=== PATIENT | female | born 1935 | race Caucasian/White ===

== ENCOUNTER 2019-04-10 12:49 | Emergency (ER) | payer OTHER ==
--- NOTE | 2019-04-10 14:59 | RAD REPORT ---
EXAM DESCRIPTION: CT - Thorax Wo Con - 04/10/2019 2:35 pm CLINICAL HISTORY: Chest pain status post fall COMPARISON: October 2017 TECHNIQUE: Computed axial tomography of the chest was obtained. Contrast was not requested. All CT scans are performed using dose optimization technique as appropriate and may include automated exposure control or mA/KV adjustment according to patient size. FINDINGS: The evaluation of mediastinum, tosha and vessels is limited secondary to lack of IV contras t administration. A pulmonary contusion is not noted. A mediastinal hematoma is not seen. A pleural effusion is not present. 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
--- NOTE | 2019-04-10 15:00 | RAD REPORT ---
EXAM DESCRIPTION: CTSpine Lumbar Wo Con04/10/2019 2:41 pm CLINICAL HISTORY: Back injury with back pain and radiculopathy status post fall COMPARISON: October 2017 TECHNIQUE: Computed axial tomography lumbar spine was obtained with coronal and sagittal reconstruct ion. All CT scans are performed using dose optimization technique as appropriate and may include automated exposure control or mA/KV adjustment according to patient size. FINDINGS: Mild anterior subluxation L4 on L5 is unchanged No fracture is seen. A filter is present within the inferior vena cava which extends to the level of the right renal vein. 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 If patient continues to have symptoms to suggest acute spin al canal pathology MRI would be recommended
--- NOTE | 2019-04-10 15:07 | EDPHYS ---
Physician Documentation [facility] Name: Mireya Tsai Age: 83 yrs Sex: Female : 1935 Arrival Date: 04/10/2019 Time: 12:51 Bed 4 Private MD: ED Physician Ben Pitt HPI: 04/10 13:27 This 83 yrs old Female presents to ER via EMS with complaints of Fall Injury. rn 13:27 Details of fall: The patient fell from an upright position. Onset: The symptoms/episode rn began/occurred today. Associated injuries: The patient sustained upper back injury. Severity of symptoms: At their worst the symptoms were mild, in the emergency department the symptoms are unchanged. The patient has not experienced similar symptoms in the past. Reports getting dressed after shower, lost balance putting shirt on, fell backwards, struck posterior thorax/back on end table, is ambulatory, did not hit head, no LOC, remembers all events. No chest/abd pain/head pain/neck pain/extremity pain.. 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 - Social history:: Smoking status: Patient/guardian denies using tobacco. - Ebola Screening: : No symptoms or risks identified at this time. - Family history:: not pertinent. - Hospitalizations: : No recent hospitalization is reported. ROS: 13:27 Constitutional: Negative for fever, chills, and weight loss, Eyes: Negative for injury, rn pain, redness, and discharge, Neck: Negative for injury, pain, and swelling, Cardiovascular: Negative for chest pain, palpitations, and edema, Respiratory: Negative for shortness of breath, cough, wheezing, and pleuritic chest pain, Abdomen/GI: Negative for abdominal pain, nausea, vomiting, diarrhea, and constipation, Back: + back pain MS/Extremity: Negative for injury and deformity, Skin: Negative for laceration Neuro: Negative for headache, weakness, numbness, tingling, and seizure. Exam: 13:27 Constitutional: This is a well developed, well nourished patient who is awake, alert, rn and in no acute distress. Head/Face: Normocephalic, atraumatic. Eyes: Pupils equal round and reactive to light, extra-ocular motions intact. Lids and lashes normal. Conjunctiva and sclera are non-icteric and not injected. Cornea within normal limits. Periorbital areas with no swelling, redness, or edema. Neck: Trachea midline, no thyromegaly or masses palpated, and no cervical lymphadenopathy. Supple, full range of motion without nuchal rigidity, or vertebral point tenderness. No Meningismus. Chest/axilla: Normal chest wall appearance and motion. Nontender with no deformity. No lesions are appreciated. Cardiovascular: Regular rate and rhythm. No pulse deficits. Respiratory: Lungs have equal breath sounds bilaterally, clear to auscultation. No increased work of breathing, no retractions or nasal flaring. Abdomen/GI: soft, non-tender Skin: Warm, dry, + abrasion left elbow, small contusion mid back MS/ Extremity: Pulses equal, no cyanosis. Neurovascular intact. Full, normal range of motion. Equal circumference. Neuro: Awake and alert, GCS 15, oriented to person, place, time, and situation. Cranial nerves II-XII grossly intact. Motor strength 5/5 in all extremities. Sensory at baseline Vital Signs: 12:58 BP 175 / 91; Pulse 84; Resp 18; Temp 97.9; Pulse Ox 97% ; Weight 61.69 kg; Height 5 ft. sv 5 in. (165.10 cm); Pain 0/10; 13:36 BP 152 / 67; Pulse 74; Resp 18; Temp 98; Pulse Ox 98% ; sv 14:52 BP 172 / 79; Pulse 72; Resp 16; Pulse Ox 96% ; sv 15:54 BP 149 / 99; Pulse 77; Resp 16; Temp 98; Pulse Ox 99% ; sv 12:58 Body Mass Index 22.63 (61.69 kg, 165.10 cm) sv [place] Coma Score: 12:58 Eye Response: spontaneous(4). Verbal Response: oriented(5). Motor Response: obeys sv commands(6). Total: 15. 13:36 Eye Response: spontaneous(4). Verbal Response: oriented(5). Motor Response: obeys sv commands(6). Total: 15. 14:52 Eye Response: spontaneous(4). Verbal Response: oriented(5). Motor Response: obeys sv commands(6). Total: 15. 15:54 Eye Response: spontaneous(4). Verbal Response: oriented(5). Motor Response: obeys sv commands(6). Total: 15. Trauma Score (Adult): 12:58 Eye Response: spontaneous(1); Verbal Response: oriented(1); Motor Response: obeys sv commands(2); Systolic BP: > 89 mm Hg(4); Respiratory Rate: 10 to 29 per min(4); Elder Score: 15; Trauma Score: 12 13:36 Eye Response: spontaneous(1); Verbal Response: oriented(1); Motor Response: obeys sv commands(2); Systolic BP: > 89 mm Hg(4); Respiratory Rate: 10 to 29 per min(4); [place] Score: 15; Trauma Score: 12 14:52 Eye Response: spontaneous(1); Verbal Response: oriented(1); Motor Response: obeys sv commands(2); Systolic BP: > 89 mm Hg(4); Respiratory Rate: 10 to 29 per min(4); [place] Score: 15; Trauma Score: 12 15:54 Eye Response: spontaneous(1); Verbal Response: oriented(1); Motor Response: obeys sv commands(2); Systolic BP: > 89 mm Hg(4); Respiratory Rate: 10 to 29 per min(4); [place] Score: 15; Trauma Score: 12 MDM: 12:54 Patient medically screened. rn 15:06 Differential diagnosis: contusion, fracture, sprain. Data reviewed: vital signs, nurses rn notes, radiologic studies, CT scan, and as a result, I will discharge patient. Counseling: I had a detailed discussion with the patient and/or guardian regarding: the historical points, exam findings, and any diagnostic results supporting the discharge/admit diagnosis, radiology results, the need for outpatient follow up, to return to the emergency department if symptoms worsen or persist or if there are any questions or concerns that arise at home. Special discussion: I discussed with the patient/guardian in detail that at this point there is no indication for admission to the hospital. It is understood, however, that if the symptoms persist or worsen the patient needs to return immediately for re-evaluation. 04/10 12:56 Order name: CT Chest Wo Con; Complete Time: 15:05 rn 04/10 12:56 Order name: CT Lumbar Spine Wo Con; Complete Time: 15:05 rn Administered Medications: No medications were administered Disposition: 04/10/19 15:06 Discharged to Home. Impression: Contusion of back wall of thorax. - Condition is Stable. - Discharge Instructions: Contusion. - Medication Reconciliation Form, Thank You Letter, Antibiotic Education, Prescription Opioid Use form. - Follow up: Private Physician; When: As needed; Reason: Recheck today's complaints, Re-evaluation by your physician. - Problem is new. - Symptoms have improved. Signatures: Dispatcher [employer] Mildred Smith RN RN Ben Delaney MD MD plasterer journeyman: (The following items were deleted from the chart) 15:56 15:06 04/10/2019 15:06 Discharged to Home. Impression: Contusion of back wall of sv thorax. Condition is Stable. Forms are Medication Reconciliation Form, Thank You Letter, Antibiotic Education, Prescription Opioid Use. Follow up: Private Physician; When: As needed; Reason: Recheck today's complaints, Re-evaluation by your physician. Problem is new. Symptoms have improved. rn
--- NOTE | 2019-04-10 15:07 | ER ---
Nurse's Notes [facility] Name: Mireya Tsai Age: 83 yrs Sex: Female : 1935 Arrival Date: 04/10/2019 Time: 12:51 Bed 4 Private MD: Diagnosis: Contusion of back wall of thorax Presentation: 04/10 12:46 Presenting complaint: EMS states: was standing putting on her shirt, lost her balance sv and hit her mid back area on her nightstand. Left elbow skin tear, was amb on scene. BP 165/85 HR-81 96% RA. Care prior to arrival: None. Mechanism of Injury: Fall from standing position. Trauma event details: Injury occurred in the [facility], Injury occurred: at home. Injury occurred: April 10, 2019. 12:46 Acuity: MICHEAL 4 sv 12:46 Method Of Arrival: EMS: [facility] sv 12:55 Transition of care: [facility]. Onset of symptoms was April 10, 2019. Risk Assessment: sv Do you want to hurt yourself or someone else? Patient reports no desire to harm self or others. Initial Sepsis Screen: Does the patient meet any 2 criteria? No. Patient's initial sepsis screen is negative. Does the patient have a suspected source of infection? No. Patient's initial sepsis screen is negative. 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 - Social history:: Smoking status: Patient/guardian denies using tobacco. - Ebola Screening: : No symptoms or risks identified at this time. - Family history:: not pertinent. - Hospitalizations: : No recent hospitalization is reported. Screenin:00 Abuse screen: Denies threats or abuse. Denies injuries from another. Tuberculosis sv screening: No symptoms or risk factors identified. 13:01 Nutritional screening: No deficits noted. Fall Risk No fall in past 12 months (0 pts). sv No secondary diagnosis (0 pts). No IV (0 pts). Ambulatory Aid- None/Bed Rest/Nurse Assist (0 pts). Gait- Normal/Bed Rest/Wheelchair (0 pts) Mental Status- Oriented to own ability (0 pts). Total Guillory Fall Scale indicates No Risk (0-24 pts). Primary Survey: 12:46 NO uncontrolled hemorrhage observed. A: The patient is alert. Airway: patent, No sv supplemental oxygen in use on arrival. Oral cavity: clear. Breathing/Chest: Respiratory pattern: regular, Respiratory effort: spontaneous, unlabored, Chest inspection: symmetrical rise and fall of the chest. Circulation: Pulses: palpable right radial artery and left radial artery. Skin color: pink, Skin temperature: warm, dry. Disability Alert. Exposure/Environment: All clothing and personal items were removed. Forensic evidence collection is not deemed to be indicated at this time. Items placed in patient belonging bag. There is no evidence of uncontrolled external bleeding. Obvious injury(ies) are noted at this time: skin tear to left elbow A warming method has been applied: A warm blanket has been provided to the patient. 13:37 Reassessment Airway Airway Patent Oxygen No O2 Oral cavity Clear Trachea Midline sv Breathing/Chest Respiratory pattern Regular Respiratory effort Spontaneous Unlabored Chest inspection Symmetrical Circulation Pulses Palpable Color [place] Temperature Warm Dry Disability Alert. Secondary Survey: 12:46 HEENT: No deficits noted. Gastrointestinal: No deficits noted. : No deficits noted. sv No signs and/or symptoms were reported regarding the genitourinary system. Musculoskeletal: No signs and/or symptoms reported regarding the musculoskeletal system. Assessment: 14:47 Reassessment: Patient appears in no apparent distress at this time. No changes from sv previously documented assessment. Patient and/or family updated on plan of care and expected duration. Pain level reassessed. Patient is alert, oriented x 3, equal unlabored respirations, skin warm/dry/pink. 14:53 Reassessment: Patient appears in no apparent distress at this time. No changes from sv previously documented assessment. Patient and/or family updated on plan of care and expected duration. Pain level reassessed. Patient is alert, oriented x 3, equal unlabored respirations, skin warm/dry/pink. 15:55 Reassessment: Patient appears in no apparent distress at this time. No changes from sv previously documented assessment. Patient and/or family updated on plan of care and expected duration. Pain level reassessed. Patient is alert, oriented x 3, equal unlabored respirations, skin warm/dry/pink. Vital Signs: 12:58 BP 175 / 91; Pulse 84; Resp 18; Temp 97.9; Pulse Ox 97% ; Weight 61.69 kg; Height 5 ft. sv 5 in. (165.10 cm); Pain 0/10; 13:36 BP 152 / 67; Pulse 74; Resp 18; Temp 98; Pulse Ox 98% ; sv 14:52 BP 172 / 79; Pulse 72; Resp 16; Pulse Ox 96% ; sv 15:54 BP 149 / 99; Pulse 77; Resp 16; Temp 98; Pulse Ox 99% ; sv 12:58 Body Mass Index 22.63 (61.69 kg, 165.10 cm) sv [place] Coma Score: 12:58 Eye Response: spontaneous(4). Verbal Response: oriented(5). Motor Response: obeys sv commands(6). Total: 15. 13:36 Eye Response: spontaneous(4). Verbal Response: oriented(5). Motor Response: obeys sv commands(6). Total: 15. 14:52 Eye Response: spontaneous(4). Verbal Response: oriented(5). Motor Response: obeys sv commands(6). Total: 15. 15:54 Eye Response: spontaneous(4). Verbal Response: oriented(5). Motor Response: obeys sv commands(6). Total: 15. Trauma Score (Adult): 12:58 Eye Response: spontaneous(1); Verbal Response: oriented(1); Motor Response: obeys sv commands(2); Systolic BP: > 89 mm Hg(4); Respiratory Rate: 10 to 29 per min(4); [place] Score: 15; Trauma Score: 12 13:36 Eye Response: spontaneous(1); Verbal Response: oriented(1); Motor Response: obeys sv commands(2); Systolic BP: > 89 mm Hg(4); Respiratory Rate: 10 to 29 per min(4); [place] Score: 15; Trauma Score: 12 14:52 Eye Response: spontaneous(1); Verbal Response: oriented(1); Motor Response: obeys sv commands(2); Systolic BP: > 89 mm Hg(4); Respiratory Rate: 10 to 29 per min(4); Elder Score: 15; Trauma Score: 12 15:54 Eye Response: spontaneous(1); Verbal Response: oriented(1); Motor Response: obeys sv commands(2); Systolic BP: > 89 mm Hg(4); Respiratory Rate: 10 to 29 per min(4); [place] Score: 15; Trauma Score: 12 ED Course: 12:51 Patient arrived in ED. ss 12:52 Mildred Calabrese, NORMA is Primary Nurse. sv 12:54 Ben Pitt MD is Attending Physician. rn 12:54 Triage completed. sv 13:00 Patient has correct armband on for positive identification. Placed in gown. Bed in low sv position. Call light in reach. Side rails up X2. 13:01 Arm band placed on. sv 13:[address] Scan. sv 13:02 Patient maintains SpO2 saturation greater than 95% on room air. sv 13:02 Thermoregulation: warm blanket given to patient. sv 13:[address] via stretcher. sv 13:29 CT completed. Patient tolerated procedure well. Patient moved back from CT. mw3 13:29 CT Chest Wo Con In Process Unspecified. EDMS 13:29 CT Lumbar Spine Wo Con In Process Unspecified. EDMS 13:35 Awaiting radiology results. sv 14:46 Patient moved back from CT. sv 14:47 Awaiting radiology results. sv 15:55 No provider procedures requiring assistance completed. Patient did not have IV access sv during this emergency room visit. Administered Medications: No medications were administered Intake: 12:58 PO: 0ml; Total: 0ml. sv 13:36 PO: 0ml; Total: 0ml. sv 15:54 PO: 0ml; Total: 0ml. sv Output: 12:58 Urine: 0ml; Total: 0ml. sv 13:36 Urine: 0ml; Total: 0ml. sv 15:54 Urine: 0ml; Total: 0ml. sv Outcome: 15:06 Discharge ordered by . rn 15:55 Discharged to home via wheelchair, with family. sv 15:55 Condition: stable 15:55 Discharge instructions given to patient, family, Instructed on discharge instructions, follow up and referral plans. Demonstrated understanding of instructions, follow-up care. 15:56 Patient's length of stay in the Emergency Department was greater than 2 hours. due to sv CTPatient's length of stay extended due to 15:56 Patient left the ED. sv Signatures: Dispatcher [employer] Mildred Smith RN RN sv Nieto, Roman, MD MD rn Smirch, Shelby, RN RN ss Willis, Michelle mw3 Corrections: (The following items were deleted from the chart) 14:53 13:36 BP 152 / 67; Pulse 74bpm; Resp 18bpm; Pulse Ox 98%; sv sv
[2019-04-10 16:27] VITALS: TEMP 98
[2019-04-10 16:29] VITALS: BP 149/99; O2SAT 99
== END 2019-04-10 15:56 | disposition home or self-care (01) ==
LOC: ER 12:49
DX: S20.229A Contusion of unspecified back wall of thorax, initial encounter (principal); I82.409 Acute embolism and thrombosis of unspecified deep veins of unspecified lower extremity; W18.30XA Fall on same level, unspecified, initial encounter; Y93.89 Activity, other specified; Y92.89 Other specified places as the place of occurrence of the external cause; Z91.040 Latex allergy status
CPT/HCPCS: 71250; 72131; 99284

== ENCOUNTER 2020-04-30 15:03 | Observation (INO) | payer OTHER ==
[2020-04-30] MEDS ORDERED: ASPIRIN 81 MG CHEWABLE TABLET ONE (16:35)
[2020-04-30] MEDS ORDERED: NA CHLORIDE 0.9% 1,000 ML ONE (16:35)
[2020-04-30 16:36] LABS: Absolute Lymphocytes (CBC) 1.5 K/uL (0.7-4.9); Basophils % 0.8 % (0-1.3); Hematocrit 27.9 % (36.0-45.0); Lymphocytes % 33.7 % (15.3-44.8); MPV 7.7 fL (7.6-11.3); RBC Red Blood Cell Count 4.02 M/uL (3.86-4.86)
[2020-04-30 16:37] LABS: Protime INR 1.09
[2020-04-30 16:50] LABS: ALT/SGPT 14 U/L (12-78); AST/SGOT 14 U/L (15-37); Albumin 3.2 g/dL (3.4-5.0); Alkaline Phosphatase 49 U/L (45-117); BUN Blood Urea Nitrogen 16 mg/dL (7-18); Bicarbonate 25 mmol/L (21-32); Bilirubin Direct < 0.1 mg/dL (0-0.2); Bilirubin Total 0.2 mg/dL (0.2-1.0); Glucose Level 95 mg/dL (74-106); Lipase 166 U/L (73-393); Magnesium 2.5 mg/dL (1.8-2.4); NT PRO-BNP 194 pg/mL (<450); Potassium 4.2 mmol/L (3.5-5.1); Protein, Total 7.3 g/dL (6.4-8.2); Sodium Level 143 mmol/L (136-145); Troponin (Emerg Dept Use Only) < 0.02 ng/mL (0.0-0.045)
[2020-04-30 17:29] LABS: Anisocytosis 2+; Blood Morphology Comment NOTED (NOT SEEN); Platelet Estimate ADEQ; Poikilocytosis 2+; Urine White Blood Cell Casts OK
--- NOTE | 2020-04-30 17:29 | RAD REPORT ---
EXAM DESCRIPTION: Hannah Single View04/30/2020 4:06 pm CLINICAL HISTORY: Chest pain COMPARISON: 2016 FINDINGS: The lungs appear clear of acute infiltrate. The heart is normal size IMPRESSION: No acute abnormalities displayed
--- NOTE | 2020-04-30 17:44 | EDPHYS ---
Physician Documentation [facility] Name: Mireya Tsai Age: 84 yrs Sex: Female : 1935 Arrival Date: 04/30/2020 Time: 15:00 Bed 16 Private MD: ED Physician Juno Goel HPI: 04/30 17:26 This 84 yrs old Female presents to ER via EMS with complaints of Chest Pain. rick 17:26 The patient or guardian reports chest pain that is located primarily in the substernal rick area. Onset: 4 day(s) ago. The pain does not radiate. Associated signs and symptoms: The patient has no apparent associated signs or symptoms. The chest pain is described as a heaviness, a pressure. Modifying factors: The symptoms are alleviated by nothing. the symptoms are aggravated by nothing. Severity of pain: in the emergency department the pain has improved. The patient has experienced similar episodes in the past, a few times. 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 - Social history:: Smoking status: Patient denies any tobacco usage or history of. - Family history:: not pertinent. ROS: 17:26 Constitutional: Negative for fever, chills, and weight loss, Eyes: Negative for injury, rick pain, redness, and discharge, ENT: Negative for injury, pain, and discharge, Neck: Negative for injury, pain, and swelling, Respiratory: Negative for shortness of breath, cough, wheezing, and pleuritic chest pain, Abdomen/GI: Negative for abdominal pain, nausea, vomiting, diarrhea, and constipation, Back: Negative for injury and pain, : Negative for injury, bleeding, discharge, and swelling, MS/Extremity: Negative for injury and deformity, Skin: Negative for injury, rash, and discoloration, Neuro: Negative for headache, weakness, numbness, tingling, and seizure, Psych: Negative for depression, anxiety, suicide ideation, homicidal ideation, and hallucinations, Allergy/Immunology: Negative for hives, rash, and allergies, Endocrine: Negative for neck swelling, polydipsia, polyuria, polyphagia, and marked weight changes, Hematologic/Lymphatic: Negative for swollen nodes, abnormal bleeding, and unusual bruising. 17:26 Cardiovascular: Positive for chest pain, of the chest. 17:26 MS/extremity: Negative for acute changes, swelling, tenderness. Exam: 17:28 Constitutional: This is a well developed, well nourished patient who is awake, alert, rick and in no acute distress. Head/Face: Normocephalic, atraumatic. Eyes: Pupils equal round and reactive to light, extra-ocular motions intact. Lids and lashes normal. Conjunctiva and sclera are non-icteric and not injected. Cornea within normal limits. Periorbital areas with no swelling, redness, or edema. ENT: Nares patent. No nasal discharge, no septal abnormalities noted. Tympanic membranes are normal and external auditory canals are clear. Oropharynx with no redness, swelling, or masses, exudates, or evidence of obstruction, uvula midline. Mucous membranes moist. Neck: Trachea midline, no thyromegaly or masses palpated, and no cervical lymphadenopathy. Supple, full range of motion without nuchal rigidity, or vertebral point tenderness. No Meningismus. Chest/axilla: Normal chest wall appearance and motion. Nontender with no deformity. No lesions are appreciated. Cardiovascular: Regular rate and rhythm with a normal S1 and S2. No gallops, murmurs, or rubs. Normal PMI, no JVD. No pulse deficits. Respiratory: Lungs have equal breath sounds bilaterally, clear to auscultation and percussion. No rales, rhonchi or wheezes noted. No increased work of breathing, no retractions or nasal flaring. Abdomen/GI: Soft, non-tender, with normal bowel sounds. No distension or tympany. No guarding or rebound. No evidence of tenderness throughout. Back: No spinal tenderness. No costovertebral tenderness. Full range of motion. Female : Normal external genitalia. MS/ Extremity: Pulses equal, no cyanosis. Neurovascular intact. Full, normal range of motion. Neuro: Awake and alert, GCS 15, oriented to person, place, time, and situation. Cranial nerves II-XII grossly intact. Motor strength 5/5 in all extremities. Sensory grossly intact. Cerebellar exam normal. Normal gait. Psych: Awake, alert, with orientation to person, place and time. Behavior, mood, and affect are within normal limits. 17:28 Musculoskeletal/extremity: DVT Exam: No signs of deep vein thrombosis. no pain, no swelling, no tenderness, negative Homans' sign noted on exam, no appreciated bluish discoloration, no erythema, no increased warmth. 17:28 Skin: Appearance: Color: pale, Temperature: normal temperature, Moisture: normal moisture, petechiae, not noted, ecchymosis, not noted, flushing, not noted, abscess, not appreciated, cellulitis, is not appreciated, induration, is not appreciated, injury, is not appreciated. 17:32 ECG was reviewed by the Attending Physician. rick 17:58 Abdomen/GI: Rectal exam: is unremarkable, rectal tone normal, Stool: guaiac negative, rick hemorrhoid(s), are not appreciated, mass, is not appreciated, swelling, is not appreciated, tenderness, is not appreciated, fecal impaction, is not appreciated. Vital Signs: 16:00 BP 142 / 59; Pulse 75; Resp 16 S; Temp 99.3(O); Pulse Ox 97% on R/A; Pain 0/10; aa5 17:00 BP 145 / 59; Pulse 73; Resp 16 S; Pulse Ox 98% on R/A; aa5 18:00 BP 160 / 70; Pulse 77; Resp 16 S; Pulse Ox 97% on R/A; aa5 19:00 BP 158 / 79; Pulse 76; Resp 19; Pulse Ox 97% on R/A; rv 20:00 BP 157 / 65; Pulse 73; Resp 17; Pulse Ox 97% on R/A; rv MDM: 15:32 Patient medically screened. [facility] 17:28 Data reviewed: vital signs, nurses notes, lab test result(s), EKG, radiologic studies, [facility] plain films. 17:29 Differential diagnosis: abnormal EKG, anxiety, chest wall pain, cholecystitis, rick Cholelithiasis gastroesophageal reflux disease (GERD), hiatal hernia, pancreatitis, pneumonia, pulmonary embolus, stable angina, unstable angina. HEART Score: History: Moderately Suspicious (1), ECG: Non specific repolarization disturbance / LBTB / PM (1), Age: > or = 65 years (2), Risk Factors: > or = 3 Risk factors for atherosclerotic disease (2), [Hypercholesterolemia] [Hypertension] [+ Family HX]. The patient was given aspirin in the Emergency Department. The patient's deep vein thrombosis risk score was calculated as follows: Total Score: 0. This patient was found to be at low risk for a deep vein thrombosis by using the Well's assessment criteria. The patient's pulmonary embolism risk score was calculated as follows: Total Score: 0-2 points. This patient was found to be at low risk for a pulmonary embolism by using the Well's assessment criteria. JUDITH Risk Score: 1 - patient's age is greater or equal to 65 years, 1 - Three or more CAD risk factors, 1- Known CAD. 04/30 15:31 Order name: Basic Metabolic Panel; Complete Time: 17:31 [facility] 04/30 15:31 Order name: CBC with Diff; Complete Time: 17:31 [facility] 04/30 15:31 Order name: LFT's; Complete Time: 17:31 [facility] 04/30 15:31 Order name: Magnesium; Complete Time: 17:31 [facility] 04/30 15:31 Order name: NT PRO-BNP; Complete Time: 17:31 [facility] 04/30 15:31 Order name: PT-INR; Complete Time: 17:31 [facility] 04/30 15:31 Order name: Troponin (emerg Dept Use Only); Complete Time: 17:31 [facility] 04/30 15:31 Order name: Lipase; Complete Time: 17:31 [facility] 04/30 16:46 Order name: CBC Smear Scan; Complete Time: 17:31 EDMS 04/30 17:56 Order name: Type And Screen 04/30 17:56 Order name: Retic Count 04/30 17:56 Order name: B12 rick 04/30 17:56 Order name: Folic Acid,Serum (folate) 04/30 17:56 Order name: Ferritin 04/30 15:31 Order name: XRAY Chest (1 view); Complete Time: 17:31 [facility] 04/30 15:31 Order name: EKG; Complete Time: 15:32 rick 04/30 15:31 Order name: Cardiac monitoring; Complete Time: 16:36 [facility] 04/30 15:31 Order name: EKG - Nurse/Tech; Complete Time: 16:36 rick 04/30 15:31 Order name: IV Saline Lock; Complete Time: 16:36 [facility] 04/30 17:47 Order name: CONS Physician Consult [facility] 04/30 17:47 Order name: CONS Physician Consult [facility] 04/30 17:56 Order name: Iron Level [facility] 04/30 17:56 Order name: TIBC [facility] 04/30 18:55 Order name: Retic Count [facility] 04/30 19:33 Order name: Transferrin Sat/Iron Binding [facility] 04/30 19:33 Order name: Ferritin [facility] 04/30 19:33 Order name: Folic Acid, (Folate) [facility] 04/30 19:33 Order name: Vitamin B12 Level [facility] 04/30 15:31 Order name: Labs collected and sent; Complete Time: 16:36 [facility] 04/30 15:31 Order name: O2 Per Protocol; Complete Time: 16:36 [facility] 04/30 15:31 Order name: O2 Sat Monitoring; Complete Time: 16:37 [facility] EC:32 Rate is 76 beats/min. Rhythm is regular. QRS [place] is Normal. MS interval is normal. QRS rick interval is normal. QT interval is normal. No Q waves. T waves are Normal. ST Segment is depressed in leads II, aVF, V3, V4, V5, V6. Interpreted by me. Reviewed by me. Administered Medications: 16:15 Drug: NS 0.9% 1000 ml Route: IV; Rate: 125 ml/hr; Site: right forearm; aa5 16:15 Drug: Aspirin 162 mg Route: PO; aa5 Disposition: 04/30/20 17:43 Hospitalization ordered by Jose Blanc for Observation. Preliminary diagnosis are Anemia, unspecified, Chest pain, unspecified, Dyspnea. - Bed requested for Telemetry/MedSurg (observation). - Status is Observation. rv - Condition is Fair. - Problem is new. - Symptoms have improved. Signatures: Dispatcher [employer] EDNM Devora Wagner Stephanie, RN RN sv Anderson, Corey, MD MD cha Calderon, Audri RN RN aa5 Samir Can RN RN rv Corrections: (The following items were deleted from the chart) 16:46 15:02 Allergies: No Known Allergies; aa5 17:57 17:43 Hospitalization Ordered by Jose Blanc MD for Observation. Preliminary diagnosis rick is Anemia, unspecified; Chest pain, unspecified. Bed requested for Telemetry/MedSurg (observation). Status is Observation. Condition is Fair. Problem is new. Symptoms have improved. rcik 18:34 17:57 04/30/2020 17:43 Hospitalization Ordered by Jose Blanc MD for Observation. bd Preliminary diagnosis is Anemia, unspecified; Chest pain, unspecified; Dyspnea. Bed requested for Telemetry/MedSurg (observation). Status is Observation. Condition is Fair. Problem is new. Symptoms have improved. rick 20:30 18:34 04/30/2020 17:43 Hospitalization Ordered by Jose Blanc MD for Observation. rv Preliminary diagnosis is Anemia, unspecified; Chest pain, unspecified; Dyspnea. Bed requested for Telemetry/MedSurg (observation). Status is Observation. Condition is Fair. Problem is new. Symptoms have improved. bd
--- NOTE | 2020-04-30 17:44 | ER ---
Nurse's Notes [facility] Name: Mireya Tsai Age: 84 yrs Sex: Female : 1935 Arrival Date: 04/30/2020 Time: 15:00 Bed 16 Private MD: Diagnosis: Anemia, unspecified;Chest pain, unspecified;Dyspnea Presentation: 04/30 15:00 Chief complaint: EMS states: chest pain, palpitations, SOB x 3 days. Initial EKG -ST sv but then ambulated to the stretcher and started to feel palpitations, EKG picked up PVCs. BP 152/76 HR-80. Temp-99.5. Onset of symptoms was April 28, 2020. 15:00 Method Of Arrival: EMS: [facility] sv 15:00 Acuity: MICHEAL 3 sv 15:50 Coronavirus screen: Client denies travel out of the [place] in the last 14 days. At this aa5 time, the client does not indicate any symptoms associated with coronavirus-19. 15:50 Ebola Screen: Patient negative for fever greater than or equal to 101.5 degrees aa5 Fahrenheit, and additional compatible Ebola Virus Disease symptoms. Initial Sepsis Screen: Does the patient meet any 2 criteria? No. Patient's initial sepsis screen is negative. Does the patient have a suspected source of infection? No. Patient's initial sepsis screen is negative. Risk Assessment: Do you want to hurt yourself or someone else? Patient reports no desire to harm self or others. 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 - Social history:: Smoking status: Patient denies any tobacco usage or history of. - Family history:: not pertinent. Screenin:50 Abuse screen: Denies threats or abuse. Nutritional screening: No deficits noted. aa5 Tuberculosis screening: No symptoms or risk factors identified. Fall Risk Fall in past 12 months (25 points). Secondary diagnosis (15 points) CVA, IV access (20 points). Total Guillory Fall Scale indicates High Risk Score (45 or more points). Fall prevention measures have been instituted. Side Rails Up X 2 Placed Close to Nursing Station. 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 . Pain: Denies pain. Neuro: Level of Consciousness is awake, alert, obeys commands, Oriented to person, place, time, situation. Cardiovascular: Heart tones S1 S2 present Rhythm is regular. Respiratory: Airway is patent Respiratory effort is even, unlabored, Respiratory pattern is regular, symmetrical, Breath sounds are clear bilaterally. GI: No signs and/or symptoms were reported involving the gastrointestinal system. : No signs and/or symptoms were reported regarding the genitourinary system. EENT: No signs and/or symptoms were reported regarding the EENT system. Derm: Skin is dry, Skin is pale, Skin temperature is warm. Musculoskeletal: Range of motion: intact in all extremities. 17:00 Neuro: Level of Consciousness is awake, alert, obeys commands, Oriented to person, aa5 place, time, situation. Respiratory: Airway is patent Respiratory effort is even, unlabored, Respiratory pattern is regular, symmetrical. Derm: Skin is dry, Skin is pale, Skin temperature is warm. 18:30 Reassessment: Pt sitting up in bed watching TV. . aa5 18:30 Neuro: Level of Consciousness is awake, alert, obeys commands, Oriented to person, aa5 place, time, situation. Respiratory: Airway is patent Respiratory effort is even, unlabored, Respiratory pattern is regular, symmetrical. Derm: Skin is dry, Skin is pale, Skin temperature is warm. Vital Signs: 16:00 BP 142 / 59; Pulse 75; Resp 16 S; Temp 99.3(O); Pulse Ox 97% on R/A; Pain 0/10; aa5 17:00 BP 145 / 59; Pulse 73; Resp 16 S; Pulse Ox 98% on R/A; aa5 18:00 BP 160 / 70; Pulse 77; Resp 16 S; Pulse Ox 97% on R/A; aa5 19:00 BP 158 / 79; Pulse 76; Resp 19; Pulse Ox 97% on R/A; rv 20:00 BP 157 / 65; Pulse 73; Resp 17; Pulse Ox 97% on R/A; rv ED Course: 15:00 Patient arrived in ED. sv 15:02 Triage completed. sv 15:12 Italia Fernandez, RN is Primary Nurse. aa5 15:27 Juno Goel MD is Attending Physician. [facility] 15:50 Patient has correct armband on for positive identification. Placed in gown. Bed in low aa5 position. Call light in reach. Side rails up X2. airport shuttle driver on. Pulse ox on. NIBP on. 16:07 XRAY Chest (1 view) In Process Unspecified. EDMS 16:15 Maintain EMS IV. Dressing intact. Good blood return noted. Site clean \T\ dry. Gauge \T\ aa 5 site: 20 G to R FA. 16:15 Initial lab(s) drawn, by me, sent to lab. aa5 17:26 CBC Smear Scan Sent. sv 17:42 Jose Blanc MD is Hospitalizing Provider. [facility] 19:00 Report given to NORMA Dawson. aa5 20:30 No provider procedures requiring assistance completed. IV is patent, with fluids rv infusing freely, with good blood return, Patient admitted, IV remains in place. Patient maintains SpO2 saturation greater than 95% on room air. Administered Medications: 16:15 Drug: NS 0.9% 1000 ml Route: IV; Rate: 125 ml/hr; Site: right forearm; aa5 16:15 Drug: Aspirin 162 mg Route: PO; aa5 Outcome: 17:43 Decision to Hospitalize by Provider. [facility] 20:30 Admitted to Med/surg accompanied by [facility], via stretcher, room 202, with chart, Report rv called to [facility] 20:30 Condition: good 20:30 Instructed on the need for admit. 20:30 Patient left the ED. rv Signatures: Dispatcher [employer] EDWA Mildred Calabrese RN RN sv Anderson, Corey, MD MD cha Calderon, Audri, RN RN aa5 Samir Can RN RN rv Corrections: (The following items were deleted from the chart) 15:03 15:00 Chief complaint: EMS states: chest pain, palpitations, SOB x 3 days. Initial EKG sv -ST but then ambulated to the stretcher and started to feel palpitations, EKG picked up PVCs. BP 152/76 HR-80. sv 16:46 15:02 Allergies: No Known Allergies; sv aa5 19: 15:50 General: Appears comfortable, Behavior is calm, cooperative, aa5 aa5 : 15:00 Coronavirus screen: Client denies travel out of the [place] in the last 14 days. aa5 cough unrelated to allergies, Client presents with at least one sign or symptom that may indicate coronavirus-19. Standard/surgical mask placed on the client. Provider contacted for isolation considerations. aa5 : 15:00 Ebola Screen: Patient negative for fever greater than or equal to 101.5 degrees aa5 Fahrenheit, and additional compatible Ebola Virus Disease symptoms aa5 : 15:00 Risk Assessment: Do you want to hurt yourself or someone else? Patient reports no aa5 desire to harm self or others. aa5 : 15:00 Initial Sepsis Screen: Does the patient meet any 2 criteria? No. Patient's aa5 initial sepsis screen is negative. Does the patient have a suspected source of infection? No. Patient's initial sepsis screen is negative. aa5 19: 18:30 Reassessment: Patient is alert, oriented x 3, equal unlabored respirations, skin aa5 warm/dry/pink. Pt sitting up in bed watching TV. . aa5
[2020-04-30 18:51] LABS: RBC Red Blood Cell Count 4.04 M/uL (3.86-4.86)
[2020-04-30 19:33] LABS: Folic Acid, (Folate) 15.1 ng/mL (3.1-17.5)
[2020-04-30] MEDS ORDERED: ONDANSETRON 4 MG/2 ML VIAL IV PRN (20:38)
[2020-04-30] MEDS ORDERED: MORPHINE 4 MG/ML SYR IV PRN (20:38)
[2020-04-30] MEDS ORDERED: ACETAMINOPHEN 325 MG TABLET PO PRN (20:45)
[2020-04-30] MEDS: FAMOTIDINE 20 MG/2 ML VIAL IV SCH (21:24)
[2020-05-01 00:52] VITALS: BMI 17.2
[2020-05-01 04:52] LABS: Hematocrit 27.3 % (36.0-45.0); MPV 8.1 fL (7.6-11.3)
[2020-05-01 04:59] LABS: Potassium 3.6 mmol/L (3.5-5.1)
[2020-05-01 07:23] LABS: Anisocytosis 1+; Blood Morphology Comment NOTED (NOT SEEN); Hypochromasia 1+; Ovalocytes 1+; Platelet Estimate ADEQ; Polychromasia 1+
[2020-05-01] MEDS ORDERED: ASPIRIN EC 81 MG TAB PO SCH (09:00)
[2020-05-01] MEDS: FONDAPARINUX SOD 7.5 MG/0.6 ML SQ SCH (09:24)
[2020-05-01] MEDS: FONDAPARINUX SOD 2.5 MG/0.5 ML SQ SCH (09:24)
[2020-05-01] MEDS: SOD FERRIC GLUC COMPLX/SUCROSE 125 MG in NA CHLORIDE 0.9% 100 ML IV SCH (09:24)
[2020-05-01] MEDS: FAMOTIDINE 20 MG/2 ML VIAL IV SCH ×2 (09:25→20:35)
--- NOTE | 2020-05-01 11:03 | EKG ---
Test Date: 2020-04-30 Test Time: 15:34:36 Glass Blowing Instructor: CINTHIA MEASUREMENT RESULTS: Intervals: Rate: 76 CA: 190 QRSD: 74 QT: 404 QTc: 454 [place]: P: 69 CA: 190 QRS: -7 T: 81 INTERPRETIVE STATEMENTS: Normal sinus rhythm Nonspecific ST and T wave abnormality Abnormal ECG Compared to ECG 09/14/2017 13:51:14 No significant changes Electronically Signed On 05-01-20 11:01:51 CDT by Wally Benson
[2020-05-01] MEDS ORDERED: MORPHINE 2 MG/ML SYR IV PRN (14:30)
--- NOTE | 2020-05-02 04:35 | HP ---
Date of Admission: 04/30/2020 Chief Complaint: Chest pain, feeling weak. History Of Present Illness: This is an 84-year-old very pleasant female patient living at [facility], came into emergency room with left-sided chest pain. The patient describe s her chest pain as located in the left breast area and left lower anterior rib cage area. Denies an y fall or injury. No fever, chills, nausea, vomiting. No cough, congestion, not coughing up any muc us. No hemoptysis. After she came into emergency room, she was evaluated in ER and admitted to [facility]. Allergies: TO LATEX. Medications: She takes Toviaz 8 mg she takes 1 tablet by mouth daily, Arixtra which is fondaparinux 10 mg subcutaneous injection daily, metoprolol succinate 50 mg and she takes 1 tablet by mouth daily, Myrbetriq 50 mg 1 tablet by mouth daily, omeprazole 20 mg p.o. daily, Vasculera daily, and ferrous s ulfate 325 mg p.o. 2 times a day. Review of Systems: Cardiovascular: As mentioned above. Constitutional: As mentioned above. All other systems reviewed and negative. Past Medical History: Significant for hypertension, hyperlipidemia, diverticulosis, overactive bladd er, anemia, and DVT of leg. Past Surgical History: Cataract surgery, IVC filter placement, foot surgery, varicose vein surgery o n both legs. Family History: Father had colon cancer. Sister had COPD. Social History: Prior history of smoking. Use of alcohol, occasional use of glass of wine. Physical Examination: Vital Signs: Temperature 96.9, pulse 90, respiratory rate 16, blood pressure 105/60, oxygen saturati on 96%. Height 5 feet 4 inches. Weight 100 pounds. General: Awake, alert, oriented, not in distress. HEENT: Head atraumatic, normocephalic. Conjunctivae nonerythematous. Sclerae white. Mouth, no thr ush or edema noted. Ears/Nose, no mass, lesion, discharge noted. Neck: Supple. No JVD, lymph nodes, bruit, thyromegaly noted. Lungs: Bilateral good equal air entry. Clear to auscultation. No rhonchi. No rales. Chest: The patient did have some mild tenderness in the left lower anterior rib cage area. Breasts: Breast examination was done in presence of nurse this morning. Bilateral symmetrical breas ts, and right breast palpation was normal. Left breast palpation shows slight tenderness and some va dima fullness in the upper outer quadrant. Heart: Normal heart sounds, no murmur or gallop. Abdomen: Soft, bowel sounds normal. No guarding, rigidity, tenderness, mass, hepatosplenomegaly, dis tention, or bruit noted. Extremities: No leg edema. No calf tenderness. Skin: No rash, ulcer, cellulitis. Lymphatics: No lymph node enlargement in axillary region, supraclavicular, infraclavicular, or neck region. Neuro: No focal neurological deficit. Chest: Unremarkable. External Genitalia: Deferred. Rectal: Deferred. Laboratory Data: Yesterday, white count 4.3, hemoglobin 8.5, platelets 290. This morning, white cou nt 4, hemoglobin 8.3, platelets 260. Yesterday, sodium 143, potassium 4.2, chloride 111, bicarb 25, BUN 16, creatinine 0.86, glucose 95. Iron 13, TIBC 333, ferritin level 6. Troponin less than 0.02 x 3. Liver function test normal. B12 368, folic acid 15.1. Chest x-ray, no acute cardiopulmonary rick nges. Impression: 1.Chest pain. 2.Rule out left breast mass. 3.Anemia, due to iron deficiency. 4.Chronic anticoagulation therapy. 5.History of deep venous thrombosis of leg. 6.Status post inferior vena cava filter placement. 7.Hypertension. 8.Hyperlipidemia. 9.Overactive bladder. 10.Diverticulosis. 11.Generalized weakness and debility. Plan: 1.Admit the patient to hospital for further evaluation and management of this problem. The patient is appropriate for observation and was admitted to the hospital. SD was ruled out. Today after I ex amined her, order was written for mammogram as well as left breast ultrasound. I did talk to cardiol ogist. Her chest pain is atypical in nature. Grassroots Organizer has not suggested any further interventio n. For her anemia, we will start her on IV iron therapy. Stool guaiac was ordered and we will tk nue home medications per order. 2.We will see her tomorrow for followup. 3.We will go ahead and consult Physical therapy and I will communicate with Rehab to see if she woul d be appropriate for inpatient rehab stay because of her significant generalized weakness and debilit y that she has developed over a period of time. FRANCISCO/MATHEWL Voice ID: [id number]
--- NOTE | 2020-05-02 08:24 | RAD REPORT ---
EXAM DESCRIPTION: US - BREAST/AXILLA, COMPLETE - 05/01/2020 3:47 pm CLINICAL HISTORY: Breast pain. COMPARISON: None. TECHNIQUE: Sonographic evaluation of the retroareolar regions and all 4 quadrants of the left breast obtained. FINDINGS: The patient complains of diffuse breast pain. Sonographic evaluation does not demonstrate a solid or cystic mass. IMPRESSION: Unremarkable left breast ultrasound. If the patient has not had a mammography in the t year diagnostic mammogram may be helpful.
[2020-05-02 08:55] VITALS: O2SAT 94
[2020-05-02] MEDS: FONDAPARINUX SOD 2.5 MG/0.5 ML SQ SCH (09:00)
[2020-05-02] MEDS: FONDAPARINUX SOD 7.5 MG/0.6 ML SQ SCH (09:00)
[2020-05-02] MEDS: SOD FERRIC GLUC COMPLX/SUCROSE 125 MG in NA CHLORIDE 0.9% 100 ML IV SCH (09:01)
[2020-05-02] MEDS: FAMOTIDINE 20 MG/2 ML VIAL IV SCH (09:01)
[2020-05-02 14:11] VITALS: BP 144/69; TEMP 97.9
--- NOTE | 2020-05-02 21:45 | CON ---
Date of Consultation: 05/01/2020 Reason For Consultation: Chest pain. History Of Present Illness: The patient is an 84-year-old woman who has a history of CVA, DVT. She has an IVC filter. She has a history of hypertension. She came in with mid-epigastric left lateral wall chest and abdominal pain that has been persistent for few hours with some nausea. No vomiting. No diaphoresis. Denied PND, orthopnea, pedal edema, palpitation, or syncope. She has already ruled out for an [place]. She denied any fever or chills or cough. Allergies: SHE IS ALLERGIC TO LATEX. Past Medical History: As stated earlier. Review of Systems: Negative. Social History: Negative. Family History: Noncontributory. Medications: At home include Arixtra, Toviaz, and Lopressor. Physical Examination: General: She appeared her stated age. Vital Signs: Stable. She was in sinus rhythm. HEENT: Negative. Neck: Supple with no bruit, lymphadenopathy, JVD, or thyromegaly. Chest: Clear to auscultation and percussion. Cardiac exam: Revealed a regular rhythm and rate without any murmurs, gallops, or rubs. Abdomen: Benign. Extremities: Revealed no clubbing, cyanosis, or edema. Diagnostic Data: She had a hemoglobin of 8.5. Chest x-ray was negative. Rest of her blood work was unremarkable. She had a negative echocardiogram and a carotid Doppler in 2017. Impression And Plan: 1.Atypical chest pain most likely gastric or gastrointestinal in general. 2.History of cerebrovascular accident. 3.History of deep venous thrombosis, status post IVC filter. The patient takes Arixtra. 4.Hypertension, well controlled. 5.Anemia. The case was discussed with Dr. Blanc. I certainly do not recommend any extensive cardiac workup at this point. Certainly if her symptoms p ersist, we can consider doing an echo and a stress test as an outpatient. I will sign off her case f or now. ANOOP/KRUNAL Voice ID: [id number] Report ID: [id number]
--- NOTE | 2020-05-03 03:43 | DS ---
Date of Discharge: 05/02/2020 Disposition: Discharged to go home. Physical Examination: HEENT: Unremarkable. Lungs: Clear to auscultation. Cardiac: Heart sounds normal. Abdomen: Soft. Bowel sounds normal. No guarding, rigidity, tenderness, distention. Extremities: No leg edema. Discharge Medications And Instructions: 1.Continue all prior home medications. 2.Continue iron supplement 1 tablet 2 times a day as she is taking. 3. Dr. Bhatia in 2 weeks and follow up at my office in 3 weeks. Final Diagnoses: 1.Chest pain. 2.Iron-deficiency anemia. 3.Chronic anticoagulation therapy. 4.Hypertension. 5.Generalized weakness. 6.Debility. Hospital Course: This is an 84-year-old pleasant female patient, admitted to the hospital with chest pain complaint. Please see dictated H and P for more information. The patient was evaluated in the ER. She was admitted to the hospital. [place] was ruled out by getting serial cardiac enzymes. Cardiol ogy consultation was obtained from Dr. Benson, who suggested no further testing to be done at this p oint and echocardiogram was ordered, but we were not able to do that because we do not have any techn ician available to do such test at the hospital at present time as extracorporeal technician is ill with some medica l problems. So, the patient will pursue followup with Dr. Benson on outpatient basis and he will de termine which test to be done, but her chest pain appears to be atypical in nature. Today, she repor chantale her chest pain was much better than yesterday, in fact resolved and no other complaints reported by her. Her stool guaiac was ordered, which came back positive. I did discuss options as underlying cause for GI blood loss and anemia and Dr. Bhatia did see her from GI Service and he wi ll consider outpatient testing for this guaiac-positive stool and iron-deficiency anemia problem. We did recommend the patient to consider inpatient rehab, but in view of COVID-19, the patient does not feel comfortable staying in the hospital and she requested to go home and get home health and home p hysical therapy and we did request Social Service consultation to assist her with such arrangements. I did call the patient's daughter . FRANCISCO/MODL Voice ID: [id number] Report ID: [id number]
== END 2020-05-02 12:02 | disposition home health service (06) ==
LOC: ER 15:03 → ERHOLD 17:44 → 2ND 20:10
PROVIDERS: ADMIT Internal Medicine; ATTEND Internal Medicine
DX: R07.89 Other chest pain (principal); D50.9 Iron deficiency anemia, unspecified; R53.1 Weakness; R53.81 Other malaise; N64.4 Mastodynia; R19.5 Other fecal abnormalities; I10 Essential (primary) hypertension; E78.5 Hyperlipidemia, unspecified; N32.81 Overactive bladder; K57.90 Diverticulosis of intestine, part unspecified, without perforation or abscess without bleeding; Z11.59 Encounter for screening for other viral diseases; R94.31 Abnormal electrocardiogram [ECG] [EKG]; Z79.01 Long term (current) use of anticoagulants; Z79.899 Other long term (current) drug therapy; Z86.718 Personal history of other venous thrombosis and embolism; Z87.891 Personal history of nicotine dependence; Z86.73 Personal history of transient ischemic attack (TIA), and cerebral infarction without residual deficits
CPT/HCPCS: 93005; 85025 ×2; 80048 ×2; 36415; 86900; 83735; 86850; 82274; 85610; 85044; 86870; 86901; 80076; 84484 ×3; 82728; 82746; 82607; 83690; 83540; 83880; 84466; 71045; 76641; 97116; 97161; 99285; J1652 ×4; J2916 ×2; J7030; J2405

== ENCOUNTER 2020-07-02 10:18 | Emergency (ER) | payer OTHER ==
--- NOTE | 2020-07-02 10:54 | RAD REPORT ---
EXAM DESCRIPTION: CT - [id number] - 07/02/2020 10:32 am CLINICAL HISTORY: fall, head injury, anticoagulation COMPARISON: No comparisons TECHNIQUE: Axial 5 mm thick images of the head were obtained. Axial 2 mm thick images of the cervic al spine were obtained with sagittal and coronal reconstruction images generated and reviewed. All CT scans are performed using dose optimization technique as appropriate and may include automated exposure control or mA/KV adjustment according to patient size. FINDINGS: No intracranial hemorrhage, mass, edema or acute intracranial finding. No acute cortical b ased infarction. No cortical edema or sulcal effacement. Patient has diminished attenuation and volum e loss in the posterior left frontal lobe and anterior parietal lobe extending from the convexity to the sylvian fissure. This is the appearance of an old CVA. Ventricles have increased in proportion to the volume loss and left cerebral CVA. No extra-axial fluid collections. Mastoid air cells and paran andi sinuses are clear. No globe or orbit abnormality seen. Cervical body height and alignment are normal. All disc levels except C2-3 show loss in height. No fr acture or acute bony abnormality. Uncovertebral joint hypertrophy, posterior endplate spurring and fa cet hypertrophy are present and causes bony foraminal stenosis on the left at C3-4 on the right at C4 -5, bilateral C5-6 and on the left C6-7. Central canal detail is inherently limited. No paraspinal mass or hematoma. IMPRESSION: No hemorrhage or acute intracranial finding. Patient has atrophy, chronic ischemic brown e and old left cerebral CVA changes. Cervical spine degenerative change as detailed. No acute finding.
--- NOTE | 2020-07-02 12:03 | EDPHYS ---
Physician Documentation [facility] Name: Mireya Tsai Age: 85 yrs Sex: Female : 1935 Arrival Date: 07/02/2020 Time: 10:25 Bed 5 Private MD: ED Physician Ben Pitt HPI: 07/02 10:26 This 85 yrs old Female presents to ER via Unassigned with complaints of Fall rn Injury. 10:26 Details of fall: The patient fell from an upright position, while standing. Onset: The rn symptoms/episode began/occurred this morning. Associated injuries: The patient sustained injury to the head. Severity of symptoms: At their worst the symptoms were mild, in the emergency department the symptoms are unchanged. The patient has not experienced similar symptoms in the past. Reports closing door, fell, hit head, no LOC, + mild swelling to left scalp, + hit left elbow, does not feel broken, + small skin tear at left elbow. Remembers all events. Denies chest pain/sob/abd pain/rib pain. Reports chronic neck pain on left side, not sure if hurting because of that or fall today.. Historical: - Allergies: 10:36 Latex, Natural Rubber; ph - Home Meds: 10:36 acetaminophen-codeine 300-30 mg Oral tab 1 tab three times a day for PRN for pain ph [Active]; fondaparinux sodium 10mg/0.8mL [Active]; gabapentin 100 mg Oral cap 1 caps 3 times per day [Active]; metoprolol tartrate 25 mg Oral tab 1 tab once daily [Active]; Toviaz 8 mg Oral Tb24 1 tab once daily [Active]; - PMHx: 10:36 blood clots; CVA - mild right lower extremitiy sensation loss; DVT; Hypertension; ph - Immunization history:: Flu vaccine is up to date. - Immunization history: Last tetanus immunization: unknown. - Family history:: not pertinent. - Social history:: Smoking status: Patient denies any tobacco usage or history of. - Hospitalizations: : No recent hospitalization is reported. ROS: 10:26 Constitutional: Negative for fever, chills, and weight loss, Eyes: Negative for injury, rn pain, redness, and discharge, Neck: Negative for swelling Cardiovascular: Negative for chest pain, palpitations, and edema, Respiratory: Negative for shortness of breath, cough, wheezing, and pleuritic chest pain, Abdomen/GI: Negative for abdominal pain, nausea, vomiting, diarrhea, and constipation, MS/Extremity: + skin tear left elbow Skin: Negative for injury, rash, and discoloration, Neuro: Negative for weakness, numbness, tingling, and seizure. Exam: 10:26 Constitutional: This is a well developed, well nourished patient who is awake, alert, rn and in no acute distress. Head/Face: Normocephalic, + mild swelling left parietal region, no laceration Eyes: Pupils equal round and reactive to light, extra-ocular motions intact. Lids and lashes normal. Conjunctiva and sclera are non-icteric and not injected. Cornea within normal limits. Periorbital areas with no swelling, redness, or edema. Neck: NO midline tenderness Chest/axilla: Normal chest wall appearance and motion. Nontender with no deformity. No lesions are appreciated. Cardiovascular: Regular rate and rhythm. No pulse deficits. Respiratory: No increased work of breathing, no retractions or nasal flaring. Abdomen/GI: soft, non-tender Back: No spinal tenderness. No costovertebral tenderness. Full range of motion. Skin: Warm, dry MS/ Extremity: Pulses equal, no cyanosis. Neurovascular intact. Full, normal range of motion. Equal circumference. Neuro: Awake and alert, GCS 15, moves all 4 extremities, strength intact Vital Signs: 10:26 BP 171 / 77; Pulse 72; Resp 18; Temp 97.9; Pulse Ox 97% on R/A; Weight 55.79 kg; Height ph 5 ft. 3 in. (160.02 cm); 11:42 BP 158 / 78; Pulse 67; Resp 18; Pulse Ox 99% on R/A; ph 12:20 Temp 97.9(TE); ph 10:26 Body Mass Index 21.79 (55.79 kg, 160.02 cm) ph [place] Coma Score: 10:36 Eye Response: spontaneous(4). Verbal Response: oriented(5). Motor Response: obeys ph commands(6). Total: 15. 11:42 Eye Response: spontaneous(4). Verbal Response: oriented(5). Motor Response: obeys ph commands(6). Total: 15. Trauma Score (Adult): 10:36 Eye Response: spontaneous(1); Verbal Response: oriented(1); Motor Response: obeys ph commands(2); Systolic BP: > 89 mm Hg(4); Respiratory Rate: 10 to 29 per min(4); Elder Score: 15; Trauma Score: 12 11:42 Eye Response: spontaneous(1); Verbal Response: oriented(1); Motor Response: obeys ph commands(2); Systolic BP: > 89 mm Hg(4); Respiratory Rate: 10 to 29 per min(4); [place] Score: 15; Trauma Score: 12 MDM: 10:25 Patient medically screened. rn 12:01 Differential diagnosis: abrasion, closed head injury, contusion, fracture. Data rn reviewed: vital signs, nurses notes, radiologic studies, CT scan, and as a result, I will discharge patient. Counseling: I had a detailed discussion with the patient and/or guardian regarding: the historical points, exam findings, and any diagnostic results supporting the discharge/admit diagnosis, radiology results, the need for outpatient follow up, to return to the emergency department if symptoms worsen or persist or if there are any questions or concerns that arise at home. Response to treatment: the patient's symptoms have markedly improved after treatment, and as a result, I will discharge patient. Special discussion: I discussed with the patient/guardian in detail that at this point there is no indication for admission to the hospital. It is understood, however, that if the symptoms persist or worsen the patient needs to return immediately for re-evaluation. ED course: Pt sitting in wheelchair, talking to family member, smiling and laughing, will dc home given neg studies, return precautions given for delayed bleeding.. 07/02 10:26 Order name: CT Head C Spine; Complete Time: 11:05 rn Administered Medications: No medications were administered Disposition: 07/02/20 12:02 Discharged to Home. Impression: Superficial injury of head. - Condition is Stable. - Discharge Instructions: Head Injury, Adult, Hematoma. - Medication Reconciliation Form, Thank You Letter, Antibiotic Education, Prescription Opioid Use form. - Follow up: Private Physician; When: As needed; Reason: Recheck today's complaints, Re-evaluation by your physician. - Problem is new. - Symptoms have improved. Signatures: Dispatcher [employer] EDMS Ben Pitt MD MD rn EdnaMonica RN RN ph Corrections: (The following items were deleted from the chart) 12:21 12:02 07/02/2020 12:02 Discharged to Home. Impression: Superficial injury of head. ph Condition is Stable. Forms are Medication Reconciliation Form, Thank You Letter, Antibiotic Education, Prescription Opioid Use. Follow up: Private Physician; When: As needed; Reason: Recheck today's complaints, Re-evaluation by your physician. Problem is new. Symptoms have improved. rn
--- NOTE | 2020-07-02 12:03 | ER ---
Nurse's Notes [facility] Name: Mireya Tsai Age: 85 yrs Sex: Female : 1935 Arrival Date: 07/02/2020 Time: 10:25 Bed 5 Private MD: Diagnosis: Superficial injury of head Presentation: 07/02 10:26 Chief complaint: EMS states: Was attempting to close a door, lost balance and fell, hit ph L side of head, no LOC, + blood thinner, also sustained skin tear to L elbow, was on ground for approx 10 minutes before EMS arrival, skin tear irrigated w/ NS and wrapped w/ Kerlix, pt denies dizziness, N/V. Coronavirus screen: Client denies travel out of the [place] in the last 14 days. At this time, the client does not indicate any symptoms associated with coronavirus-19. Ebola Screen: No symptoms or risks identified at this time. Initial Sepsis Screen: Does the patient meet any 2 criteria? No. Patient's initial sepsis screen is negative. Does the patient have a suspected source of infection? No. Patient's initial sepsis screen is negative. Risk Assessment: Do you want to hurt yourself or someone else? Patient reports no desire to harm self or others. Onset of symptoms was July 02, 2020. 10:26 Method Of Arrival: EMS: [facility] ph 10:26 Acuity: MICHEAL 2 ph 10:29 Care prior to arrival: Bleeding of injury controlled. Injury cleansed. Injury dressed. ph Mechanism of Injury: Fall from standing position. Trauma event details: Injury occurred in the [facility], Injury occurred: at home. Injury occurred: July 02, 2020. Trauma Activation: Alert Physician: ED Physician; Name: ; Notified At: ; Arrived At: Physician: General Surgeon; Name: ; Notified At: ; Arrived At: Physician: Radiology; Name: ; Notified At: ; Arrived At: Physician: Respiratory; Name: ; Notified At: ; Arrived At: Physician: Lab; Name: ; Notified At: ; Arrived At: Historical: - Allergies: 10:36 Latex, Natural Rubber; ph - Home Meds: 10:36 acetaminophen-codeine 300-30 mg Oral tab 1 tab three times a day for PRN for pain ph [Active]; fondaparinux sodium 10mg/0.8mL [Active]; gabapentin 100 mg Oral cap 1 caps 3 times per day [Active]; metoprolol tartrate 25 mg Oral tab 1 tab once daily [Active]; Toviaz 8 mg Oral Tb24 1 tab once daily [Active]; - PMHx: 10:36 blood clots; CVA - mild right lower extremitiy sensation loss; DVT; Hypertension; ph - Immunization history:: Flu vaccine is up to date. - Immunization history: Last tetanus immunization: unknown. - Family history:: not pertinent. - Social history:: Smoking status: Patient denies any tobacco usage or history of. - Hospitalizations: : No recent hospitalization is reported. Screenin:34 Abuse screen: Denies threats or abuse. Denies injuries from another. Nutritional ph screening: No deficits noted. Tuberculosis screening: No symptoms or risk factors identified. Fall Risk Fall in past 12 months (25 points). No secondary diagnosis (0 pts). No IV (0 pts). Ambulatory Aid- Crutches/Cane/Walker (15 pts). Gait- Normal/Bed Rest/Wheelchair (0 pts) Mental Status- Oriented to own ability (0 pts). Total Guillory Fall Scale indicates High Risk Score (45 or more points). Fall prevention measures have been instituted. Side Rails Up X 2 Placed Close to Nursing Station Frequent Obs/Assessments Occuring As available patient and family educated on Fall Prevention Program and Strategies. Primary Survey: 10:32 NO uncontrolled hemorrhage observed. A: The patient is alert. Airway: patent, No ph supplemental oxygen in use on arrival. Oral cavity: clear, Trachea midline. Breathing/Chest: Respiratory pattern: regular, Respiratory effort: spontaneous, unlabored, Chest inspection: symmetrical rise and fall of the chest. Circulation: Skin color: pink, Skin temperature: warm, dry. Disability Alert. Exposure/Environment: There is no evidence of uncontrolled external bleeding. Obvious injury(ies) are noted at this time: skin tear to L elbow, hematoma to L forehead A warming method has been applied: A warm blanket has been provided to the patient. 12:21 Reassessment Airway Airway Patent Breathing/Chest Respiratory pattern Regular ph Respiratory effort Spontaneous Unlabored Disability Alert. Secondary Survey: 10:34 HEENT: Head Other hematoma to L frontal area. Gastrointestinal: No deficits noted. : ph No signs and/or symptoms were reported regarding the genitourinary system. Musculoskeletal: Circulation, motion, and sensation intact. Range of motion: intact in all extremities. Injury Description: Skin tears sustained to left elbow. Assessment: 10:30 General: Appears in no apparent distress. comfortable, slender, well groomed, Behavior ph is calm, cooperative, appropriate for age, Denies fever, feeling ill. Pain: Complains of pain in left yarsani and left elbow. Neuro: Level of Consciousness is awake, alert, obeys commands, Oriented to person, place, time, situation. Cardiovascular: Capillary refill < 3 seconds in bilateral fingers Patient's skin is warm and dry. Respiratory: Airway is patent Respiratory effort is. GI: No signs and/or symptoms were reported involving the gastrointestinal system. Patient currently denies abdominal pain, nausea, vomiting. Derm: Skin is fragile, is thin, Skin is pink, warm \T\ dry. Derm: Wound noted left elbow Wound is skin tear, bleeding controlled. Musculoskeletal: Circulation, motion, and sensation intact. Range of motion: intact in all extremities, Swelling present in left yarsani. 11:41 Reassessment: Patient appears in no apparent distress at this time. Patient and/or ph family updated on plan of care and expected duration. Pain level reassessed. Patient is alert, oriented x 3, equal unlabored respirations, skin warm/dry/pink. 12:20 Reassessment: Patient appears in no apparent distress at this time. Patient and/or ph family updated on plan of care and expected duration. Pain level reassessed. Patient is alert, oriented x 3, equal unlabored respirations, skin warm/dry/pink. Vital Signs: 10:26 BP 171 / 77; Pulse 72; Resp 18; Temp 97.9; Pulse Ox 97% on R/A; Weight 55.79 kg; Height ph 5 ft. 3 in. (160.02 cm); 11:42 BP 158 / 78; Pulse 67; Resp 18; Pulse Ox 99% on R/A; ph 12:20 Temp 97.9(TE); ph 10:26 Body Mass Index 21.79 (55.79 kg, 160.02 cm) ph Elder Coma Score: 10:36 Eye Response: spontaneous(4). Verbal Response: oriented(5). Motor Response: obeys commands(6). Total: 15. 11:42 Eye Response: spontaneous(4). Verbal Response: oriented(5). Motor Response: obeys ph commands(6). Total: 15. Trauma Score (Adult): 10:36 Eye Response: spontaneous(1); Verbal Response: oriented(1); Motor Response: obeys ph commands(2); Systolic BP: > 89 mm Hg(4); Respiratory Rate: 10 to 29 per min(4); [place] Score: 15; Trauma Score: 12 11:42 Eye Response: spontaneous(1); Verbal Response: oriented(1); Motor Response: obeys ph commands(2); Systolic BP: > 89 mm Hg(4); Respiratory Rate: 10 to 29 per min(4); [place] Score: 15; Trauma Score: 12 ED Course: 10:25 Patient arrived in ED. ph 10:25 Ben Pitt MD is Attending Physician. rn 10:25 Monica Londono RN is Primary Nurse. ph 10:29 Triage completed. ph 10:32 CT Head C Spine In Process Unspecified. EDMS 10:36 Arm band placed on Patient placed in an exam room, on a stretcher, on pulse oximetry. ph 10:36 Patient has correct armband on for positive identification. Placed in gown. Bed in low ph position. Call light in reach. Side rails up X2. Pulse ox on. NIBP on. Door closed. Noise minimized. Warm blanket given. 10:37 Patient maintains SpO2 saturation greater than 95% on room air. Thermoregulation: warm ph blanket given to patient. 11:42 No provider procedures requiring assistance completed. ph 12:21 Patient did not have IV access during this emergency room visit. ph Administered Medications: No medications were administered Intake: 10:36 PO: 0ml; Total: 0ml. ph Output: 10:36 Urine: 0ml; Total: 0ml. ph Outcome: 12:02 Discharge ordered by . rn 12:21 Discharged to home via wheelchair, with family. ph 12:21 Condition: good 12:21 Discharge instructions given to patient, family, Instructed on discharge instructions, follow up and referral plans. Demonstrated understanding of instructions, follow-up care. 12:21 Patient's length of stay was not longer than 2 hours. ph 12:21 Patient left the ED. ph Signatures: Dispatcher [employer] EDMS Ben Pitt MD MD rn Monica Londono RN RN ph
[2020-07-02 12:26] VITALS: TEMP 97.9
[2020-07-02 12:32] VITALS: BP 158/78; O2SAT 99
== END 2020-07-02 12:21 | disposition home or self-care (01) ==
LOC: ER 10:18
DX: S00.90XA Unspecified superficial injury of unspecified part of head, initial encounter (principal); W19.XXXA Unspecified fall, initial encounter; Y93.89 Activity, other specified; Y92.9 Unspecified place or not applicable; Z91.040 Latex allergy status; Z91.048 Other nonmedicinal substance allergy status; I10 Essential (primary) hypertension; Z86.718 Personal history of other venous thrombosis and embolism
CPT/HCPCS: 70450; 72125; 99284; G0390